=== PATIENT | female | born 1950 | race African-American/Black ===

== ENCOUNTER 2017-07-30 16:50 | Emergency (ER) | payer SELFPAY ==
[2017-07-30] MEDS ORDERED: Ibuprofen 200 MG TAB ONE (17:21)
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
== END 2017-07-30 18:13 | disposition home or self-care (01) ==
LOC: NAV ERS 16:50
DX: S93.421A Sprain of deltoid ligament of right ankle, initial encounter (principal); S86.911A Strain of unspecified muscle(s) and tendon(s) at lower leg level, right leg, initial encounter; I10 Essential (primary) hypertension; Z79.899 Other long term (current) drug therapy; V48.5XXA Car driver injured in noncollision transport accident in traffic accident, initial encounter

== ENCOUNTER 2017-08-23 14:30 | Emergency (ER) | payer MEDICARE, SELFPAY ==
--- NOTE | 2017-08-23 15:21 | RAD ---
RADIOGRAPH PELVIS 1 VIEW: HISTORY: A 67-year-old female with acute, traumatic pelvic pain due to fall. FINDINGS: The pelvic ring appears to be intact. Femoral head contours are maintained. No grossly displaced fr acture is identified. If there is pain in one or both hips, dedicated 2-view radiograph of that hip is recommended. There is central-medial bilateral hip joint space narrowing. No subcapital osteophy arsh. Mild bony hypertrophy of the acetabula. IMPRESSION: 1. No acute fracture identified. 2. articular cartilage loss in the bilateral hip joints. POS: [facility]
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
--- NOTE | 2017-08-23 15:28 | CT ---
CT CERVICAL SPINE WITHOUT CONTRAST: INDICATION: History of fall with neck pain. Associate Director None. FINDINGS: There is a posterior midline fusion defect at C1 which is a normal variant. Craniocervical junction is normal appearing. There is multilevel disk degenerative facet osteoarthritic change of the cervic al spine. No acute fracture or subluxation is present. The lung apices are clear. Prevertebral sof t tissues appear within normal limits. IMPRESSION: 1. No acute fracture or subluxation. 2. Mild to moderate cervical spondylosis. POS: [facility]
== END 2017-08-23 16:10 | disposition home or self-care (01) ==
LOC: NAV ERS 14:30
DX: S09.90XA Unspecified injury of head, initial encounter (principal); S70.02XA Contusion of left hip, initial encounter; M16.12 Unilateral primary osteoarthritis, left hip; I10 Essential (primary) hypertension; W19.XXXA Unspecified fall, initial encounter
CPT/HCPCS: 70450; 72125; 72170